=== PATIENT | female | born 1980 | race Caucasian/White ===

== ENCOUNTER 2018-03-15 11:46 | Emergency (ER) | payer OTHER ==
[2018-03-15 11:49] VITALS: BP 142/85; TEMP 96.9; BMI 25.0
[2018-03-15] MEDS ORDERED: DILAUDID 2 MG/ML SYRINGE IVP STA (12:00)
[2018-03-15] MEDS ORDERED: SODIUM CHLORIDE 1,000 ML IV STA (12:00)
[2018-03-15] MEDS ORDERED: PHENERGAN 25 MG/ML VIAL 25 MG in SODIUM CHLORIDE 50 ML IV STA (12:01)
[2018-03-15] MEDS ORDERED: PHENERGAN 25 MG/ML VIAL ONE (12:05)
[2018-03-15] MEDS ORDERED: ZOFRAN 4 MG/2 ML IVP STA (12:46)
[2018-03-15] MEDS ORDERED: TORADOL IVP STA (12:46)
--- NOTE | 2018-03-15 13:09 | ED.PDOC ---
General ED Provider: Dr. JIN WEEMS-ER Chief Complaint: Headache Stated Complaint: elizabeth got a migraine Time Seen by Physician: 11:50 Mode of Arrival: Walk-In Information Source: Patient, Family Exam Limitations: No limitations Primary Care Provider: JIN WEEMS Nursing and Triage Documentation Reviewed and Agree: Yes Does patient meet sepsis criteria?: No System Inflammatory Response Syndrome: Not Applicable Sepsis Protocol: For patient's 13 years and over: Temp is 96.8 and below OR 101 and greater Pulse >90 BPM Resp >20/minute Acutely Altered Mental Status Are patient's symptoms suggestive of a new infection, such as: -Pneumonia -Skin, Soft Tissue -Endocarditis -UTI -Bone, Joint Infection -Implantable Device -Acute Abdominal Infection -Wound Infection -Meningitis -Blood Stream Catheter Infection -Unknown Neurological Complaint Exam - Headache Complaint/Exam Onset: Gradual Duration: several hours Symptoms Are: Still present Timing: Constant Worst Headache Ever: No Initial Severity: Mild Current Severity: Moderate Location: Diffuse Character: Reports: Dull, Throbbing, Typical headache, Migraine Aggravating: Reports: Bright lights Alleviating: Reports: None Associated Signs and Symptoms: Reports: Nausea, Vomiting. Denies: Dizziness, Seizure, Sinus pressure, Fever, Neck pain, Neck stiffness, Decreased LOC, Visual changes Related History: Reports: Similar episode (long hx of migraine--feels the same-- no worse than usual) Related Surgical History: Reports: None Meningitis Risk Factors: Reports: None SDH Risk Factors: Reports: None Temporal Arteritis Risk Factors: Reports: Female, Normal Head CT Within Last 12 Months: No Fundoscopic Exam: Present: Normal Findings Papilledema Present: No Temporal Artery Tenderness: Present: None Sinus Tenderness: Present: None TMJ Tenderness: Present: None Glascow Coma Scale (see protocol): 15 Meningeal Signs Positive: No Pain on Passive Flexion-Positive Kernig's: No ROM Limited In: No Limitiations Focal Weakness: Present: None Focal Sensory Loss: Present: None Gait: Normal Nystagmus Present: No Gag Reflex Present: Yes [id number]: Normal Findings Romberg Test Positive: No Babinski Sign: Negative Right, Negative Left Heel to Toe Normal: Yes Differential Diagnoses: Migraine Review of Systems - Review Of Systems Constitutional: Reports: No symptoms Eyes: Reports: No symptoms Ears, Nose, Mouth, Throat: Reports: No symptoms Respiratory: Reports: No symptoms Cardiac: Reports: No symptoms GI: Reports: Nausea : Reports: No symptoms Musculoskeletal: Reports: No symptoms Skin: Reports: No symptoms Neurological: Reports: Headache Endocrine: Reports: No symptoms Hematologic/Lymphatic: Reports: No symptoms All Other Systems: Reviewed and Negative Past Medical History - Past Medical History Previously Healthy: Yes Endocrine: Reports: None Cardiovascular: Reports: None Respiratory: Reports: None Hematological: Reports: None Gastrointestinal: Reports: None Genitourinary: Reports: None Neuro/Psych: Reports: Migraine Musculoskeletal: Reports: None Cancer: Reports: None Last Menstrual Period: 03/15/18 - Surgical History General Surgical History: Reports: Unknown - Family History Family History: Reports: Unknown - Social History Smoking Status: Never smoker Hx Substance Use: No Alcohol Screening: None - Immunizations Tetanus Shot up to Date: Yes Physical Exam - Physical Exam Appearance: Well-appearing, No pain distress, Well-nourished Pain Distress: Moderate Eyes: REG, EOMI, Conjunctiva clear ENT: Ears normal, Nose normal, Oropharynx normal Neck: Supple Respiratory: Airway patent, Breath sounds clear, Breath sounds equal, Respirations nonlabored Cardiovascular: RRR, Pulses normal, No rub, No murmur GI/: Soft, Nontender, No masses, Bowel sounds normal, No Organomegaly Musculoskeletal: Normal strength, ROM intact, No edema, No calf tenderness Skin: Warm, Dry, Normal color Neurological: Sensation intact, Motor intact, Reflexes intact, Cranial nerves intact, Alert, Oriented Psychiatric: Affect appropriate, Mood appropriate Re-Evaluation - Re-Evaluation Time of Re-Evaluation: 13:10 Status: Improved Vital Signs Stable: Yes Pain Level: 0 Appearance: NAD Lungs: Clear Skin: Warm and Dry Neuro: Alert and Oriented X3 CV: RRR Critical Care Note - Critical Care Note Total Time (mins): 0 Course - Course Orders, Labs, Meds: Orders Category Date Time Status ED IV/MEDIPORT/POWERPORT .ONCE EMERGENCY 03/15/18 12:00 Active 0.9 % Sodium Chloride [Saline Flush] MEDS 03/15/18 12:00 Discontinued 1 syr IVF PRN PRN Hydromorphone HCl/Pf [Dilaudid 2 mg/ml Syringe] MEDS 03/15/18 12:00 Discontinued 1 mg IVP ONCE STA Ketorolac Tromethamine [Toradol] MEDS 03/15/18 12:46 Discontinued 30 mg IVP ONCE STA Ondansetron HCl/Pf [Zofran 4 mg/2 ml] MEDS 03/15/18 12:46 Discontinued 4 mg IVP ONCE STA Promethazine HCl [Phenergan 25 mg/ml Vial] MEDS 03/15/18 12:05 Discontinued 25 mg .ROUTE .STK-MED ONE Promethazine HCl [Phenergan 25 mg/ml Vial] 25 mg MEDS 03/15/18 12:01 Discontinued 0.9 % Sodium Chloride [Sodium Chloride] 50 ml IV ONCE Sodium Chloride 0.9% [Sodium Chloride] 1,000 ml MEDS 03/15/18 12:00 Discontinued IV BOLUS Medications Discontinued Medications Generic Name Dose Route Start Last Admin Trade Name Freq PRN Reason Stop Dose Admin Hydromorphone HCl 1 mg 03/15/18 12:00 03/15/18 12:20 Dilaudid 2 Mg/Ml Syringe IVP 03/15/18 12:01 1 mg ONCE STA Administration Promethazine HCl 25 mg/ Sodium 51 mls @ 75 mls/hr 03/15/18 12:01 03/15/18 12: 18 Chloride IV 03/15/18 12:41 75 mls/hr ONCE STA Administration Sodium Chloride 1,000 mls @ 1,000 mls/hr 03/15/18 12:00 03/15/18 12:20 Sodium Chloride IV 03/15/18 12:59 1,000 mls/hr BOLUS STA Administration Ketorolac Tromethamine 30 mg 03/15/18 12:46 03/15/18 12:56 Toradol IVP 03/15/18 12:47 30 mg ONCE STA Administration Ondansetron HCl 4 mg 03/15/18 12:46 03/15/18 12:56 Zofran 4 Mg/2 Ml IVP 03/15/18 12:47 4 mg ONCE STA Administration Sodium Chloride 1 syr 03/15/18 12:00 Saline Flush IVF PRN PRN To flush IV Vital Signs: Temp Pulse Resp BP Pulse Ox 03/15/18 11:47 96.9 F L 91 H 16 142/85 H 96 Departure - Departure Time of Disposition: 13:30 Disposition: HOME SELF-CARE Discharge Problem: Migraine Instructions: Migraine Headache (ED) Condition: Good Pt referred to PMD for follow-up: No IPMP verified?: No Additional Instructions: norco 7.5mg q 4hrs prn pain #6--phenergan 25mg q 4hrs #10--prn if lezama returns Allergies/Adverse Reactions: Allergies No Known Allergies Allergy (Verified 03/15/18 11:50) Home Medications: Ambulatory Orders Bupropion HCl [Wellbutrin Sr] 300 mg PO DAILY 04/28/13 Sumatriptan Succinate [Imitrex] 100 mg PO ONCE 04/28/13 Disposition Discussed With: Patient, Family
== END 2018-03-15 13:46 | disposition home or self-care (01) ==
LOC: ED 11:46
DX: G43.909 Migraine, unspecified, not intractable, without status migrainosus (principal)
CPT/HCPCS: 96365; 96375; 99283